=== PATIENT | female | born 1975 | race Caucasian/White ===

== ENCOUNTER → 2018-09-03 | Outpatient (CLI) | payer BC, OTHER ==
[~2018-09-03] VITALS: Ht 162.6 cm; Wt 98.9 kg
[~2018-09-03] MED LIST: LASIX 20 MG TAB20 MG PO; LISINOPRIL5 MG PO; MIRENA1 EACH INTRAUTERI; PYRIDOXINE HCL50 MG PO; THERA-M CAPLET1 EAC2 PO; VITAMIN D2000 UNIT PO; VITAMINC500 PO
[2018-09-03 12:51] LABS: HEMATOCRIT 44.5 % (37.0-47.0); HEMOGLOBIN 14.8 gm/dL (12.0-15.0); MCHC 33.2 g/dL (28.0-37.0); MCV 84.4 fL (80.0-100.0); RBC 5.27 mil/uL (4.20-5.00); RDW 13.8 % (10.5-14.5); WBC 8.9 thou/uL (4.0-11.0)
[2018-09-03 12:52] VITALS: BP 118/60
[2018-09-03 12:58] LABS: CALCIUM 9.3 mg/dL (8.5-10.1); CREATININE 0.7 mg/dL (0.6-1.0); POTASSIUM 3.8 mmol/L (3.5-5.1)
== END | disposition home or self-care (01) ==
LOC: CATH 11:16
PROVIDERS: Nuclear Medicine Nuclear Cardiology
DX: I87.2 Venous insufficiency (chronic) (peripheral) (principal); I87.1 Compression of vein; R60.0 Localized edema; I10 Essential (primary) hypertension; Z98.890 Other specified postprocedural states; Z82.49 Family history of ischemic heart disease and other diseases of the circulatory system; Z88.8 Allergy status to other drugs, medicaments and biological substances; Z79.899 Other long term (current) drug therapy